=== PATIENT | female | born 1990 | race American Indian/Alaskan Native ===

== ENCOUNTER 2016-12-20 20:30 | Emergency (ER) | payer OTHER ==
[2016-12-20 20:40] VITALS: RESP 16; TEMP 97.9; O2SAT 100
--- NOTE | 2016-12-20 20:58 | ED PDOC ---
HPI: Seizure Time Seen by Provider: 12/20/16 20:44 Chief Complaint (Nursing): Seizure Chief Complaint (Provider): Seizure History Per: Patient History/Exam Limitations: no limitations Additional Complaint(s): Patient is a 26 y/o female with a past medical history of a seizure disorder presenting to the emergency department for a witnessed seizure lasting approximately 2-3 minutes with generalized tonic-clonic characteristics prior to arrival. Denies any recollection of the event but admits to noncompliance with Keppra. Denies headache, injuries, or other complaints. PCP: none provided. Past Medical History Reviewed: Historical Data, Nursing Documentation, Vital Signs Vital Signs: Last Vital Signs Temp 97.9 F 12/20/16 20:37 Pulse 85 12/20/16 20:37 Resp 16 12/20/16 20:37 BP 104/70 12/20/16 20:37 Pulse Ox 100 12/20/16 21:06 - Medical History PMH: Seizures - Surgical History Surgical History: No Surg Hx - Family History Family History: States: Unknown Family Hx - Social History Current smoker - smoking cessation education provided: No Ex-Smoker (has not smoked in the last 12 months): No Alcohol: Social Drugs: Denies - Home Medications Home Medications: Ambulatory Orders Medication Instructions Recorded No Known Home Med 12/20/16 - Allergies Allergies/Adverse Reactions: Allergies Allergy/AdvReac Type Severity Reaction Status Date / Time No Known Allergies Allergy Verified 12/20/16 20:37 Review of Systems ROS Statement: Except As Marked, All Systems Reviewed And Found Negative Neurological: Positive for: Seizures. Negative for: Headache Physical Exam - Reviewed Nursing Documentation Reviewed: Yes Vital Signs Reviewed: Yes - Physical Exam Appears: Positive for: Well, Non-toxic, No Acute Distress Head Exam: Positive for: ATRAUMATIC, NORMAL INSPECTION, NORMOCEPHALIC Skin: Positive for: Normal Color, Warm, Dry Eye Exam: Positive for: Normal appearance, EOMI, PERRL ENT: Positive for: Normal ENT Inspection, Other (no bite lópez on mouth or tongue) Neck: Positive for: Normal, Painless ROM Cardiovascular/Chest: Positive for: Regular Rate, Rhythm. Negative for: Murmur Respiratory: Positive for: Normal Breath Sounds. Negative for: Accessory Muscle Use, Respiratory Distress Gastrointestinal/Abdominal: Positive for: Normal Exam, Soft. Negative for: Tenderness Extremity: Positive for: Normal ROM. Negative for: Deformity Neurologic/Psych: Positive for: Alert, Oriented (x3). Negative for: Motor/ Sensory Deficits - Laboratory Results Result Diagrams: 12/20/16 20:55 12/20/16 21:13 - ECG O2 Sat by Pulse Oximetry: 100 (RA) Pulse Ox Interpretation: Normal Medical Decision Making Medical Decision Making: Time: 20:53 Initial impression: Seizure Initial plan: Labs Head CT Scan EKG ED Urine Keppra 750 mg Reevaluation Scribe Attestation: Documented by Lillei Carolina, acting as a scribe for Dread Myers MD. Provider Scribe Attestation: All medical record entries made by the Scribe were at my direction and personally dictated by me. I have reviewed the chart and agree that the record accurately reflects my personal performance of the history, physical exam, medical decision making, and the department course for this patient. I have also personally directed, reviewed, and agree with the discharge instructions and disposition. Disposition - Clinical Impression Clinical Impression: Recurrent seizures - Patient ED Disposition Is Patient to be Admitted: No Counseled Patient/Family Regarding: Studies Performed, Diagnosis, Need For Followup - Disposition Disposition: Routine/Home Disposition Time: 22:18 Condition: FAIR Instructions: Recurrent Seizures in Adults (ED) Forms: [employer] (Indonesian)
[2016-12-20 21:19] LABS: BASO % 0.5 % (0.0-2.0); EOS # 0.1 K/uL (0.0-0.7); EOS % 1.6 % (0.0-4.0); HEMATOCRIT 37.6 % (34.0-47.0); LYMPH # 1.6 K/uL (1.0-4.3); LYMPH % 33.7 % (20.0-40.0); MEAN CELL VOLUME 87.4 fl (81.0-99.0); MEAN CORPUSCULAR HEMOGLOBIN 28.2 pg (27.0-31.0); MEAN CORPUSCULAR HGB CONC 32.3 g/dL (33.0-37.0); MEAN PLATELET VOLUME 7.3 fl (7.2-11.7); MONO # 0.4 K/uL (0.0-0.8); MONO % 9.5 % (0.0-10.0); NEUT # 2.6 K/uL (1.8-7.0); NEUT % 54.7 % (50.0-75.0); RED CELL DISTRIBUTION WIDTH 13.5 % (11.5-14.5); WHITE BLOOD COUNT 4.7 K/uL (4.8-10.8)
[2016-12-20 21:39] LABS: ALB/GLOB RATIO 1.4 (1.0-2.1); ALCOHOL SERUM < 10 mg/dl (0-10); ALKALINE PHOSPHATASE 39 U/L (38-126); ALT/SGPT 25 U/L (9-52); AST/SGOT 24 U/L (14-36); BILIRUBIN,TOTAL 0.4 mg/dl (0.2-1.3); BLOOD UREA NITROGEN 9 mg/dl (7-17); CALCIUM 9.6 mg/dL (8.4-10.2); CARBON DIOXIDE 23 mmol/L (22-30); CHLORIDE 101 mmol/L (98-107); GFR AFRICAN-AMERICAN > 60; GLUCOSE,RANDOM 109 mg/dL (65-105); POTASSIUM 3.5 MMOL/L (3.6-5.0); SODIUM 141 mmol/l (132-148); TOTAL PROTEIN 7.9 G/DL (6.3-8.2)
[2016-12-20] MEDS ORDERED: Potassium Chloride 20 mEq ER Tab PO ONE ×2 (21:52→22:27)
[2016-12-20 22:43] VITALS: BP 125/80; PULSE 75
--- NOTE | 2016-12-21 13:12 | CT ---
PROCEDURE: CT HEAD WITHOUT CONTRAST. HISTORY: seizure, head injury COMPARISON: None available. TECHNIQUE: Axial computed tomography images were obtained through the head/brain without intravenous contrast. Radiation dose: Total exam DLP = 860.59 mGy-cm. This CT exam was performed using one or more of the following dose reduction techniques: Automated exposure control, adjustment of the mA and/or kV according to patient size, and/or use of iterative reconstruction technique. FINDINGS: HEMORRHAGE: No acute parenchymal, subarachnoid nor extra-axial hemorrhage. BRAIN: No evidence of large acute infarct. . There is a rounded approximately 13.5 cc x 12.6t x 8.5 ap mm rounded/elliptical shaped masslike density seen projecting into the luminal surface posterior aspect left lateral ventricle. This lesion is of uncertain etiology though could represent a focus heterotopic arthur matter, intraventricular meningioma subependymal bulla or possibly an ependymoma. Follow-up of CT scan with contrast as well as pre and post-contrast MRI of the brain recommended for further evaluation. VENTRICLES: No obstructive hydrocephalus CALVARIUM: There are no acute calvarial fractures. PARANASAL SINUSES: Liver Unremarkable as visualized. No significant inflammatory changes. MASTOID AIR CELLS: Unremarkable as visualized. No inflammatory changes. OTHER FINDINGS: None. IMPRESSION: No acute parenchymal, subarachnoid nor extra-axial hemorrhage. No evidence of large acute infarct. . There is a rounded approximately 13.5 cc x 12.6t x 8.5 ap mm rounded/elliptical shaped masslike density seen projecting into the luminal surface posterior aspect left lateral ventricle. See above discussion for differential diagnostic considerations Follow-up of CT scan with contrast as well as pre and post-contrast MRI of the brain recommended for further evaluation. Note these findings were discussed with emergency room K[facility]ila at approximately 12 p.m. with written down and read back verification.
--- NOTE | 2016-12-21 23:03 | CARD ---
APPROVED REPORT EKG Measurement Heart [id number] VT [id number] <Conclusion> Normal sinus rhythm with sinus arrhythmia Normal ECG
== END 2016-12-20 22:44 | disposition home or self-care (01) ==
LOC: H.ER 20:30
DX: G40.909 Epilepsy, unspecified, not intractable, without status epilepticus (principal); Z91.19 Patient's noncompliance with other medical treatment and regimen
CPT/HCPCS: 70450; 80053; 80320; 81025; 82948; 85025; 93005; 96365; 99285; J1953